=== PATIENT | female | born 1985 | race Caucasian/White ===

== ENCOUNTER 2016-09-04 19:36 | Emergency (ER) | payer SELFPAY ==
[~2016-09-04] VITALS: Ht 175.3 cm; Wt 96.5 kg
[~2016-09-04 19:36] MED LIST: ASPI325T PO; BUSP7.5T7 PO; DOXY25TA PO; OMEP-122 PO; ONDA4TAB7 PO; PROM25TA7 PO; SUCR1TAB PO
--- OUTSIDE RECORDS SUMMARY | 2016-09-04 19:41 | XMS REPORT | Continuity of Care Document ---
Author Author [facility] Organization [facility] Address Unknown Phone Unavailable Allergies Active Description Code Type Severity Reaction Onset Reported/Identified Relationship to Patient Clinical Status Yes Penicillins Drug Allergy Severe Anaphylaxis 06/10/2010 Yes No Known Food Allergies Food Allergy 08/08/2012 Yes No Known Food Allergies Food Allergy N/A N/A 03/19/2013 Yes Penicillins Penicillins Drug Allergy Severe AIRWAY SWELLING 09/19/2015 Medications Problems Date Dx Coded Attending Type Code Diagnosis Diagnosed By 08/08/2012 Bronson Rogers MD Final 305.1 TOBACCO USE DISORDER 08/08/2012 Bronson Rogers MD Final 535.50 GASTRODUODENITIS NOS 08/08/2012 Bronson Rogers MD Final 786.50 CHEST PAIN NOS 02/28/2013 Final 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 02/28/2013 Final 724.2 LUMBAGO 03/19/2013 Luiz Vizcarra MD Final 465.9 ACUTE URI NOS 03/19/2013 Luiz Vizcarra MD Final 599.0 URINARY TRACT INF NOS 03/19/2013 Luiz Vizcarra MD Final 724.2 LUMBAGO 03/19/2013 Luiz Vizcarra MD Admitting 786.2 COUGH 05/29/2016 JAMES ALBERT [id number] Nicotine dependence, cigarettes, uncomplicated 05/29/2016 JAMES ALBERT F419 Anxiety disorder, unspecified 05/29/2016 JAMES ALBERT N739 Female pelvic inflammatory disease, unspecified 05/29/2016 JAMES ALBERT [id number] Left lower quadrant pain 05/29/2016 JAMES ALBERT R110 Nausea 05/29/2016 JAMES ALBERT R200 Anesthesia of skin 05/29/2016 JAMES ALBERT [id number] Patient's other noncompliance with medication regimen Procedures Encounters ACCT No. Visit Date/Time Discharge Status Pt. Type Provider Facility Loc./Unit Complaint [id number] 03/19/2013 16:57:00 2012 18:18:00 DIS Emergency Zackery PHILLIP, Luiz Emery [facility] on [address] [id number] 08/08/2012 21:34:00 2012 00:25:00 DIS Emergency Sue PHILLIP, Bronson Alcala [facility] on [address] [id number] 02/28/2013 17:15:00 Document Registration
--- OUTSIDE RECORDS SUMMARY | 2016-09-04 19:42 | XMS REPORT | Continuity of Care Document ---
Author Author [facility] Organization [facility] Address Unknown Phone Unavailable Support Name Relationship Address Phone RAMBO CUEVA MD Caregiver [address] [place] [address] Unavailable JUAN M AL Next Of Kin [address] [place] [address] Insurance Providers Guarantor Shirley Iniguez Address [address] [place] [address] Email DENIED 16 Payer Self Pay Subscriber's Name Shirley Iniguez Relationship 18 Self Chief Complaint and Reason for Visit Chief Complaint Chest Pain Reason for Visit Gastritis Problems Past Problems Medical Problem Onset Date Anxiety Unknown Anxiety Unknown Anxiety Unknown Anxiety Unknown Anxiety Unknown Anxiety disorder Unknown Chest pain Unknown Chest pain Unknown Elevated liver enzymes Unknown Elevated liver function tests Unknown Enteritis Unknown Gastritis Unknown Panic attack Unknown Panic attack Unknown Medications Current Home Medications Medication Dose Units Route Directions Days Qty Instructions Start Date Aspirin 325 Mg Tablet 325 Mg Oral Daily 07/14/16 Buspirone Hcl 7.5 Mg Tablet 7.5 Mg Oral Twice A Day 07/11/16 Doxylamine Succinate (Sleep Aid) 25 Mg Tablet 25 Mg Oral Bedtime 07/11/16 Omeprazole 20 Mg Tablet.dr 20 Mg Oral Before Breakfast 20 Tablet Take one tablet by mouth twice daily for 7 days, then one tablet by mouth daily. Ondansetron (Zofran Odt) 4 Mg Tab.rapdis 4 Mg Oral Q8h @ 0100/0900/1700 10 Tablet Orally disintegrating tablet 07/14/16 Promethazine Hcl 25 Mg Tablet 1 Tab-Cap Oral Every 6 Hr Prn for Nausea &/ Or Vomiting 20 07/11/16 Sucralfate 1 Gm Tablet 1 Gm Oral Twice A Day 07/11/16 Past Home Medications Medication Directions Ordered Status Hydroxyzine Pamoate (Vistaril) 50 Mg Capsule, 1 Cap Oral Four Times Daily for Anxiety 06/02/16 Discontinued Social History Social History Problem Response Recorded Date/Time Onset Date Status Hx Substance Use No 07/11/2016 4:24pm Not Applicable Not Applicable Hx Alcohol Use No 07/11/2016 4:24pm Not Applicable Not Applicable Hospital Discharge Instructions No hospital discharge instructions. Plan of Care Discharge Date 07/14/16 8:50pm Disposition 01 DISCHARGED HOME, SELF-CARE Condition at Discharge Stable Instructions/Education Provided Gastritis (ED) Prescriptions See Medication Section Additional Instructions/Education Continue to drink plenty of fluids at home. May use the Zofran as needed for nausea and take the Omeprazole to help reduce acidity. If this is not improving at all then please follow up with your primary care provider for reevaluation. Care Plan and Goals Physician Care Plan Problem:Gastritis Goal: Follow up with primary care provider Instructions: Take medications and follow care plan as discussed/written Functional Status No functional status results. Allergies, Adverse Reactions, Alerts Allergen Type Severity Reaction Status Last Updated Penicillin Allergy Severe ANAPHYLAXIS Active 07/14/16 Immunizations Query Response on File Recorded Date/Time Influenza Vaccine Hx 2016 07/11/16 4:24pm Vital Signs Acute Vital Signs Vital Response Date/Time Temperature (Fahrenheit) 98.4 deg F (96.8 - 99.1) 07/14/2016 7:18pm Temperature (Calculated Celsius) 36.20125 degrees C (36.0 - 37.3) 07/14/2016 7:18pm Pulse Rate (adult) 119 bpm (60 - 100) 07/14/2016 7:18pm Respiratory Rate 20 breaths/min (10 - 20) 07/14/2016 7:18pm O2 Sat by Pulse Oximetry 98 % (90 - 100) 07/14/2016 7:18pm Blood Pressure 172/82 mm Hg 07/14/2016 7:18pm Height (Feet) 5 feet 07/14/2016 7:18pm Height (Inches) 9.00 inches 07/14/2016 7:18pm Weight (Kilograms) 95.400 kg 07/14/2016 7:18pm Body Mass Index (BMI) 31.0 07/14/2016 7:18pm Results Laboratory Results Test Name Result Units Flags Reference Collection Date/Time Result Date/ Time Comments D-Dimer < 150 NG/ML 0-230 06/02/2016 10:07am 06/02/2016 10:58am <230 NG/ML D-DU=PRESUMPTIVE NEGATIVE FOR PE OR DVT >230 NG/ML D-DU=ADDITIONAL EVAL FOR PE OR DVT RECOMMENDED Troponin I < 0.012 ng/ml 0-0.12 06/02/2016 10:07am 06/02/2016 10:44am Troponin values with a difference of 55% increase from orginal troponin value represent a true biological DELTA value. (%increase Calc=Orginal Troponin value, divided by subsequent Troponin value, multiplied by 100) Thyroid Stimulating Hormone (TSH) 1.54 MIU/L 0.47-4.68 06/02/2016 10: 07am 06/02/2016 11:01am Urine Collection Type CLEANCATCH-MIDSTREAM 07/11/2016 2:53pm 2016 3:05pm Urine Color YELLOW YELLOW 07/11/2016 2:53pm 07/11/2016 3:05pm Urine Turbidity CLEAR CLEAR 07/11/2016 2:53pm 07/11/2016 3:05pm Urine Specific [place] <=1.005 L 1.015-1.025 07/11/2016 2:53pm 2016 3:05pm Urine pH 5.5 5.0-8.0 07/11/2016 2:53pm 07/11/2016 3:05pm Urine Leukocyte Esterase NEGATIVE NEGATIVE 07/11/2016 2:53pm 2016 3:05pm Urine Nitrite NEGATIVE NEGATIVE 07/11/2016 2:53pm 07/11/2016 3:05pm Urine Protein NEGATIVE NEGATIVE 07/11/2016 2:53pm 07/11/2016 3:05pm Urine Glucose (UA) NEGATIVE NEGATIVE 07/11/2016 2:53pm 07/11/2016 3: 05pm Urine Ketones NEGATIVE NEGATIVE 07/11/2016 2:53pm 07/11/2016 3:05pm Urine Urobilinogen 0.2 EU/DL NORMAL 07/11/2016 2:53pm 07/11/2016 3: 05pm Urine Bilirubin NEGATIVE NEGATIVE 07/11/2016 2:53pm 07/11/2016 3: 05pm Urine Blood NEGATIVE NEGATIVE 07/11/2016 2:53pm 07/11/2016 3:05pm Urinalysis Comment MICROSCOPIC NOT IND. 07/11/2016 2:53pm 2016 3:05pm White Blood Count 6.1 T/MM3 4.5-11.0 07/14/2016 7:50pm 07/14/2016 8: 00pm Red Blood Count 3.65 M/MM3 L 4.00-5.20 07/14/2016 7:50pm 07/14/2016 8: 00pm Hemoglobin 11.7 GM/DL L 12-16 07/14/2016 7:50pm 07/14/2016 8:00pm Hematocrit 35.3 % L 36-46 07/14/2016 7:50pm 07/14/2016 8:00pm Mean Corpuscular Volume 96.7 UM3 80-100 07/14/2016 7:50pm 07/14/2016 8: 00pm Mean Corpuscular Hemoglobin 32.1 UUG 26-34 07/14/2016 7:50pm 2016 8:00pm Mean Corpuscular Hemoglobin Concent 33.1 GM/DL 31-37 07/14/2016 7:50pm 07/14/2016 8:00pm RDW Standard Deviation 40.9 FL 36.9-50.2 07/14/2016 7:50pm 07/14/2016 8 :00pm Platelet Count 262 T/MM3 130-400 07/14/2016 7:50pm 07/14/2016 8:00pm Mean Platelet Volume 10.1 UM3 9.4-12.4 07/14/2016 7:50pm 07/14/2016 8: 00pm Neutrophils (%) (Auto) 49.1 % 33-66 07/14/2016 7:50pm 07/14/2016 8: 00pm Lymphocytes (%) (Auto) 39.4 % 23-45 07/14/2016 7:50pm 07/14/2016 8: 00pm Monocytes (%) (Auto) 7.4 % 0-9.0 07/14/2016 7:50pm 07/14/2016 8:00pm Eosinophils (%) (Auto) 3.1 % 0-4 07/14/2016 7:50pm 07/14/2016 8:00pm Basophils (%) (Auto) 0.7 % 0-2 07/14/2016 7:50pm 07/14/2016 8:00pm Immature Granulocyte % (Auto) 0.3 % 0.0-0.5 07/14/2016 7:50pm 2016 8:00pm Absolute Neutrophils (auto) 3.0 T/MM3 1.8-7.7 07/14/2016 7:50pm 2016 8:00pm Absolute Lymphocytes (auto) 2.4 T/MM3 1-4.8 07/14/2016 7:50pm 2016 8:00pm Absolute Monocytes (auto) 0.5 T/MM3 0-0.8 07/14/2016 7:50pm 07/14/2016 8:00pm Absolute Eosinophils (auto) 0.2 T/MM3 0-0.5 07/14/2016 7:50pm 2016 8:00pm Absolute Basophils (auto) 0.0 T/MM3 0-0.2 07/14/2016 7:50pm 07/14/2016 8:00pm Absolute Immature Granulocyte (auto 0.02 T/MM3 0.00-0.03 07/14/2016 7: 50pm 07/14/2016 8:00pm Icterus Index < 2 0-7 07/14/2016 7:50pm 07/14/2016 8:05pm Chemistry Specimen Hemolysis 16 0-25 07/14/2016 7:50pm 07/14/2016 8: 05pm 0-25: Specimen Exhibited No Hemolysis. Turbidity < 20 0-20 07/14/2016 7:50pm 07/14/2016 8:05pm Sodium Level 139 MEQ/L 134-144 07/14/2016 7:50pm 07/14/2016 8:05pm Potassium Level 4.3 MEQ/L 3.6-5 07/14/2016 7:50pm 07/14/2016 8:05pm Chloride Level 111 MEQ/L H 98-107 07/14/2016 7:50pm 07/14/2016 8:05pm Carbon Dioxide Level 21 MEQ/L L 22-30 07/14/2016 7:50pm 07/14/2016 8: 05pm Anion Gap 7 MEQ/L 5-15 07/14/2016 7:50pm 07/14/2016 8:05pm Blood Urea Nitrogen 13.0 MG/DL 707/14/2016 7:50pm 07/14/2016 8: 05pm Creatinine 0.9 MG/DL 0.7-1.2 07/14/2016 7:50pm 07/14/2016 8:05pm BUN/Creatinine Ratio 14 RATIO 6-26 07/14/2016 7:50pm 07/14/2016 8:05pm Glomerular Filtration Rate Calc 73 07/14/2016 7:50pm 07/14/2016 8: 05pm Glucose Level 93 MG/DL 65-110 07/14/2016 7:50pm 07/14/2016 8:05pm Calculated Osmolality 268 MOSM/KG 261-280 07/14/2016 7:50pm 07/14/2016 8:05pm Calcium Level 8.7 MG/DL 8.4-10.2 07/14/2016 7:50pm 07/14/2016 8:05pm Total Bilirubin 0.30 MG/DL 0.20-1.30 07/14/2016 7:50pm 07/14/2016 8: 05pm Alkaline Phosphatase 91 U/L 38-126 07/14/2016 7:50pm 07/14/2016 8:05pm Total Protein 6.8 G/DL 6.3-8.2 07/14/2016 7:50pm 07/14/2016 8:05pm Albumin 3.7 G/DL 3.5-5.0 07/14/2016 7:50pm 07/14/2016 8:05pm Globulin 3.1 G/DL 2.4-3.6 07/14/2016 7:50pm 07/14/2016 8:05pm Albumin/Globulin Ratio 1.2 RATIO 1.1-2.2 07/14/2016 7:50pm 07/14/2016 8 :05pm Aspartate Amino Transf (AST/SGOT) 31 U/L 14-36 07/14/2016 7:50pm 2016 8:05pm Alanine Aminotransferase (ALT/SGPT) 107 U/L H 9-52 07/14/2016 7:50pm 8:05pm Lipase 97 U/L 23-300 07/14/2016 7:50pm 07/14/2016 8:15pm Procedures Procedure Status Date Provider(s) Hydrate iv infusion add-on Completed 07/11/16 Ther/proph/diag inj iv push Completed 07/11/16 Tx/pro/dx inj new drug addon Completed 07/11/16 Tx/pro/dx inj new drug addon Completed 07/11/16 Encounters Encounter Location Arrival/Admit Date Discharge/Depart Date Attending Provider Departed Emergency Room [facility] 07/14/16 7:16pm 07/14/16 8: 50pm RAMBO CUEVA MD Departed Emergency Room [facility] 07/11/16 1:26pm 07/11/16 6: 15pm SHEY ZIEGLER DO Departed Emergency Room [facility] 06/04/16 9:14pm 06/04/16 11: 39pm PABLO DEGROOT DO Departed Emergency Room [facility] 06/02/16 9:27am 06/02/16 12: 40pm BROOKLYNN ZEPEDA DO Recent Diagnosis
--- OUTSIDE RECORDS SUMMARY | 2016-09-04 19:42 | XMS REPORT ---
Author Author [facility], SYSTEM Organization Unknown Address Unknown Phone Unavailable Care Team Providers Care Development Consultant Name Role Phone UNASSIGNED DOCTOR , DOCTOR PP [phone] Reason For Visit Chief Complaint PELVIC INFLAMMATORY DISEASE Social History Functional Status Vital Signs Results Chemistry from 05/28/2016 8:05 PMSODIUM 139 MMOL/L (136-145 MMOL/L) POTASSIUM 3.5 MMOL/L (3.5-5.1 MMOL/L) CHLORIDE 104 MMOL/L (98-107 MMOL/L) TCO2 25.8 MMOL/L (21.0-32.0 MMOL/L) *ANION GAP 9.2 MMOL/L (8.0-16.0 MMOL/L) BUN 5 MG/DL L (7-18 MG/DL) CREATININE 0.75 MG/DL (0.55-1.02 MG/DL) *BUN/CREATININE RATIO 6.7 L (9.1-17.0 ) GLUCOSE 104 MG/DL H (65-99 MG/DL) *GFR EST NON AFR DOMINICAN >90 ML/MIN *GFR EST AFR AMER >90 ML/MIN CALCIUM 9.5 MG/DL (8.5-10.1 MG/DL) BILIRUBIN TOTAL 0.20 MG/DL (0.20-1.00 MG/DL) TOTAL PROTEIN 7.0 GM/DL (6.4-8.2 GM/DL) ALBUMIN 3.7 GM/DL (3.4-5.0 GM/DL) *GLOBULIN 3.3 GM/DL (2.3-3.5 GM/DL) *A/G RATIO 1.1 MG/DL L (1.5-2.2 MG/DL) ALK PHOS 99 U/L (46-116 U/L) ALT (SGPT) 45 U/L (16-63 U/L) AST (SGOT) 52 U/L H (15-37 U/L) Hematology from 05/28/2016 8:05 PMWBC 8.7 X10e3/UL (3.6-11.2 X10e3/UL) RBC 3.74 X10e6/UL (3.63-4.92 X10e6/UL) HEMOGLOBIN 11.8 G/DL (11.0-14.3 G/DL) HEMATOCRIT 35.5 % (31.2-41.9 %) *MCV 94.8 FL (79.0-98.0 FL) *MCH 31.5 PG (27.0-33.0 PG) *MCHC 33.3 G/DL (32.0-36.0 G/DL) *RDW 12.4 % (12.3-17.0 %) *RDWSD 41.6 (37.1-47.8 ) PLATELET 224 X10e3/UL (159-386 X10e3/UL) *MPV 8.4 FL (7.4-10.4 FL) AUTOMATED DIFF PERFORMED SEGS 60.8 % *LYMPHOCYTES 31.2 % *MONOCYTES 5.9 % *EOSINOPHILS 1.6 % *BASOPHILS 0.5 % *ABSOLUTE NEUTROPHILS 5.30 X10e3/UL (1.80-7.80 X10e3/UL) *ABSOLUTE LYMPHOCYTES 2.70 X10e3/UL (1.00-3.00 X10e3/UL) *ABSOLUTE MONOCYTES 0.50 X10e3/UL (0.30-1.00 X10e3/UL) *ABSOLUTE EOSINOPHILS 0.10 X10e3/UL (0.00-0.50 X10e3/UL) *ABSOLUTE BASOPHILS 0.00 X10e3/UL (0.00-0.20 X10e3/UL) Urinalysis from 05/28/2016 9:05 PM*URINE COLOR YELLOW (STRAW/YELL/DK YELL ) *URINE APPEARANCE CLEAR (CLEAR ) URINE PH 5.5 (5.0-8.0 ) URINE SPECIFIC GRAVITY <1.005 (<=1.005->=1.030 ) *URINE GLUCOSE NEGATIVE MG/DL (NEGATIVE MG/DL) *URINE BILIRUBIN NEGATIVE (NEGATIVE ) *URINE KETONES NEGATIVE MG/DL (NEGATIVE MG/DL) *URINE BLOOD NEGATIVE (NEGATIVE ) *URINE PROTEIN NEGATIVE MG/DL (NEGATIVE MG/DL) *URINE UROBILINOGEN 0.2 EU/DL (0.2-1.0 EU/DL) *URINE NITRITES NEGATIVE (NEGATIVE ) *URINE LEUKOCYTES NEGATIVE (NEGATIVE ) UR NEGATIVE (NEGATIVE ) Microbiology from 05/28/2016 8:40 PM* *[facility]- FUNGAL SMEAR Specimen Number: [id number] Sample Collection Date/Time: 05/28/2016 8:40 PM Specimen Source: Cervix *WET PREP: No Trichomonas seen *DEEDEE- FUNGAL SMEAR: No yeast or fungal elements seen CULTURE GC PROFILE: No Neisseria gonorrhoeae isolated * *WET PREP Specimen Number: [id number] Sample Collection Date/Time: 05/28/2016 8:40 PM Specimen Source: Cervix *WET PREP: No Trichomonas seen *DEEDEE- FUNGAL SMEAR: No yeast or fungal elements seen CULTURE GC PROFILE: No Neisseria gonorrhoeae isolated * CULTURE GC PROFILE (Preliminary Result) Specimen Number: [id number] Sample Collection Date/Time: 05/28/2016 8:40 PM Specimen Source: Cervix *WET PREP: No Trichomonas seen CULTURE GC PROFILE: No Neisseria gonorrhoeae isolated *DEEDEE- FUNGAL SMEAR: No yeast or fungal elements seen CT Scan from 05/28/2016 8:18 PMCT ABD/PELVIS W/O CONTRAST History: abdominal pain, llq . 31 y/o female presented to the ED via EMS for constant back pain and abd pain starting a couple hours ago. Pt also states anxiety, shaking, numbness in feet, chest pain, and nausea, but denies fever, cough, diarrhea, dysuria, vaginal bleeding, and vaginal discharge. She has a Hx of anxiety as well as a PSHx of cholecystectomy and tubal ligation. Pt has not been taking her medication. Her LNMP was last week. No hx of simiar back and abd pain. Priors: None. Findings: Abdomen Lung bases: Clear Liver: Normal density. No definable mass. Spleen: Normal. Pancreas: No discrete mass or inflammatory process. Gallbladder and biliary tract: The gallbladder is surgically absent. Adrenal glands: Normal. Kidneys: There are questionable punctate bilateral renal calculi. There is no evidence of ureteral calculus or hydronephrosis. No Hydronephrosis. Urinary Bladder: Normal. Aorta: Normal in caliber. No periaortic lymphadenopathy. Bowel and Mesentery: There is moderate retained fecal material noted within the colon. No findings of appendicitis. Ascites: None. Pelvis Lymphadenopathy: None. Reproductive: Unremarkable. Osseous Structures: There is a transitional vertebrae noted at the lumbosacral junction. Impression: Constipation. Questionable punctate nonobstructing bilateral renal calculi. Electronically signed by: Debby Sanabria MD Dictated: 05/29/2016 09:02 Problems Encounter Diagnosis No relevant problems exist. Encounters Encounter Diagnosis No relevant problems exist. Plan of Care Procedures No relevant procedures performed. Immunizations No immunizations administered or ordered. Hospital Course Hospital Discharge Instructions Allergies, Adverse Reactions, Alerts * Latex Allergy has not been assessed. * IV Contrast Allergy has not been assessed. Medication Medication reconciliation has not been performed.
[2016-09-04 20:11] VITALS: TEMP 98.2; Ht 175.3 cm; Wt 96.5 kg
[2016-09-04] MEDS ORDERED: ONDANSETRON ODT 4 MG TAB PO ONE (20:30)
[2016-09-04] MEDS ORDERED: LORAZEPAM 0.5 MG TABLET PO ONE (20:30)
--- NOTE | 2016-09-04 20:34 | ERPDOC ---
Departure Disposition Decision Date: Sep 04, 2016 Disposition Decision Time: 21:22 Disposition: 01 DISCHARGED HOME, SELF-CARE Impression Impression Impression: Primary Impression: Nausea & vomiting Vomiting type: unspecified Vomiting Intractability: non-intractable Qualified Codes: R11.2 - Nausea with vomiting, unspecified Severity: Moderate Condition: Stable Seen By: Mid-level only Patient Instructions: Acute Nausea and Vomiting (ED) Problems/Meds/Labs Reviewed?: Yes Medications reviewed and manag: Yes Additional Instructions: Your labs today are normal aside from very mildly elevated liver enzymes. I want you to use the Zofran as needed for nausea. If you are not improving in the next 1-2 days then please follow up with your primary care provider for reevaluation. Follow up care ordered?: Yes Mental Status: Alert, Oriented Scripts Ondansetron (Zofran Odt) 4 Mg Tab.rapdis 4 MG PO Q8HR, #7 TAB 0 Refills Orally disintegrating tablet Prov: SHONDA MEAD CASH MANAGER 09/04/16 HPI - General Medical General Chief Complaint: General Stated Complaint: DOES NOT FEEL WELL,VOMITING,ANXIETY Time Seen by Provider: 20:30 Source: patient Exam Limitations: no limitations HPI - General Medical Initial Comments She has not felt well today. Has been having some increased nausea today. Has not taken anything for this at home. Denies any diarrhea or fever/chills. Has had a headache and feels like her anxiety is worse. She has not really been taking anything recently for her anxiety and so would like something here today. Occurred At: home Onset: Gradual Duration: 6-12 hrs Severity: moderate Associated Symptoms: headaches, loss of appetite, malaise, nausea/vomiting, DENIES: chest pain, cough, diaphoresis, fever/chills, rash, seizure, shortness of breath, syncope, weakness Hx of Similar Symptoms: No Allergies: Coded Allergies: Penicillins (Verified Allergy, Severe, ANAPHYLAXIS, 09/04/16) Past History Past Medical History Hx Echocardiogram: No GI: gallbladder disease Neurological: migraines, seizures Psychological: anxiety Surgical History General: gallbladder Reproductive/: tubal ligation Family History Family PMH: FOUND: other Social History Smoking Status: Never smoker Does patient use chewing tobac: No Second Hand Exposure: No Substance Use Type: does not use Alcohol Intake: none Marital Status: Sexuality: male partner Housing: house Household Members: family Service: No Current Occupational Status: unemployed Occupational Hazard: No Advance Directives: Yes Full Code Review of Systems Constitutional Constitutional: appetite decrease, fatigue, weakness, DENIES: chills, dizziness , fever Cardiovascular Cardiac: DENIES: chest pain, orthopnea Rhythm/Rate: DENIES: irregular beat, palpitations Vascular: DENIES: pedal edema, unilateral swelling Pulmonary Respiratory: DENIES: cough, dyspnea, sputum, tachypnea GI Upper Abdomen: nausea, vomiting, DENIES: pain Lower Abdomen: DENIES: constipation, diarrhea, pain Integumentary Skin: DENIES: rash Neurological General: DENIES: headache, numbness, tingling, weakness Physical Exam General General Nourishment: well nourished, well developed, appears stated age, no acute distress, adult General Body Habitus: well groomed Vitals and Pain First Documented Vital Signs Date Time Temp Pulse Resp B/P Pulse Ox O2 Delivery O2 Flow Rate FiO2 09/04/16 20:11 98.2 86 19 127/71 100 Room Air Weight: Kilograms: 96.500 Height (feet): 5 Height (inches): 9.00 Triage Pain Scale: RN VS reviewed by Provider: Yes Normal Exams: Neck: Full range of motion, without adenopathy, JVD, bruits or thyromegaly Chest/Resp: Clear all had[place], with good airflow, and symmetry bilaterally CV: Regular rate and rhythm, without murmur or gallop, Pulses 2+ all extremities, capillary refill, <2 seconds all ext., no pedal edema noted Abdomen: Bowel sounds positive, soft, non-tender, non-distended, no hepatosplenomegaly, masses or bruits noted Lymphatic: No lymphadenopathy, or lymphedema noted Integumentary: No rashes, hives, or bruising noted Neurologic: Patient is alert, and oriented Psychiatric: Patient exhibits, appropriate attention, emotion and affect Differential Diagnoses Considering: Hypo/Hyperglycemia, Hypo/Hyperkalemia, Hypo/Hypernatremia, Other ( gastroenteritis) Progress Results/Orders Orders Procedure Category Date Status Time Cbc W/Auto LAB 09/04/16 Complete Diff-Reflex Manual Cmp - Comprehensive LAB 09/04/16 Complete Metabolic Ondansetron Odt PHA 09/04/16 Complete (Zofran Odt) 20:30 Lorazepam (Ativan) PHA 09/04/16 Complete 20:30 Ondansetron Odt PHA 09/04/16 In Process (Prepack) (Zofran Odt 21:30 Lab Results Laboratory Tests Test 09/04/16 20:40 White Blood Count 6.9T/MM3 Red Blood Count 3.76M/MM3 Hemoglobin 11.9GM/DL Hematocrit 35.5% Mean Corpuscular Volume 94.4UM3 Mean Corpuscular Hemoglobin 31.6UUG Mean Corpuscular Hemoglobin Concent 33.5GM/DL RDW Standard Deviation 40.7FL Platelet Count 294T/MM3 Mean Platelet Volume 9.8UM3 Immature Granulocyte % (Auto) 0.4% Neutrophils (%) (Auto) 47.5% Lymphocytes (%) (Auto) 40.9% Monocytes (%) (Auto) 8.0% Eosinophils (%) (Auto) 2.9% Basophils (%) (Auto) 0.3% Absolute Immature Granulocyte (auto 0.03T/MM3 Absolute Neutrophils (auto) 3.3T/MM3 Absolute Lymphocytes (auto) 2.8T/MM3 Absolute Monocytes (auto) 0.6T/MM3 Absolute Eosinophils (auto) 0.2T/MM3 Absolute Basophils (auto) 0.0T/MM3 Turbidity < 20 Sodium Level 138MEQ/L Potassium Level 4.2MEQ/L Chloride Level 106MEQ/L Carbon Dioxide Level 22MEQ/L Anion Gap 10MEQ/L Blood Urea Nitrogen 9.0MG/DL Creatinine 0.7MG/DL Glomerular Filtration Rate Calc 98 BUN/Creatinine Ratio 13RATIO Glucose Level 97MG/DL Calculated Osmolality 265MOSM/KG Calcium Level 9.1MG/DL Total Bilirubin 0.30MG/DL Icterus Index < 2 Aspartate Amino Transf (AST/SGOT) 48U/L Alanine Aminotransferase (ALT/SGPT) 83U/L Alkaline Phosphatase 117U/L Total Protein 6.7G/DL Albumin 3.7G/DL Globulin 3.0G/DL Albumin/Globulin Ratio 1.2RATIO Chemistry Specimen Hemolysis < 15 Medications Current ED Medications Ondansetron HCl (Zofran Odt) 4 mg O ONCE PO Last administered on 09/04/16t 20: 38; Start 09/04/16 at 20:30; Stop 09/04/16 at 20:31; Status DC Lorazepam (Ativan) 0.5 mg O ONCE PO Last administered on 09/04/16t 20:40; Start 09/04/16 at 20:30; Stop 09/04/16 at 20:31; Status DC Ondansetron HCl (ZOFRAN ODT (PrePack)) 1 pack O ONCE SENT HOME ; Start at 21:30; Stop 09/04/16 at 21:31 Progress Progress WBC is normal. CMP is normal aside from AST-48 and ALT-83. She has had elevated liver enzymes off and on in the past. Will go ahead and let her go home with Rx for Zofran. F/U with PCP if not improving at all. SHONDA MEAD APRN Sep 04, 2016 20:34
--- OUTSIDE RECORDS SUMMARY | 2016-09-04 20:44 | XMS REPORT ---
Author Author GENERATED, SYSTEM Organization Unknown Address Unknown Phone Unavailable Care Team Providers Care Shop Assistant Name Role Phone UNASSIGNED DOCTOR , DOCTOR PP [phone] Reason For Visit Chief Complaint PELVIC INFLAMMATORY [...] H (65-99 MG/DL) *GFR EST NON AFR TURKISH >90 ML/MIN *GFR EST AFR AMER >90 [...] 8:40 PM* *DEEDEE- FUNGAL SMEAR Specimen Number: [id number] Sample Collection Date/Time: 05/28/2016 8:40 PM Specimen Source: Cervix *WET PREP: No Trichomonas seen *DEEDEE- FUNGAL SMEAR: No yeast or fungal elements seen CULTURE GC PROFILE: No Neisseria gonorrhoeae isolated * *WET PREP Specimen Number: [id number] Sample Collection Date/Time: 05/28/2016 8:40 PM Specimen Source: Cervix *WET PREP: No Trichomonas seen *DEEDEE- FUNGAL SMEAR: No yeast or fungal elements seen CULTURE GC PROFILE: No Neisseria gonorrhoeae isolated * CULTURE GC PROFILE (Preliminary Result) Specimen Number: [id number] Sample Collection Date/Time: 05/28/2016 8:40 PM Specimen [...]
--- OUTSIDE RECORDS SUMMARY | 2016-09-04 20:44 | XMS REPORT | Continuity of Care Document ---
Author Author [facility] Organization [facility] Address Unknown Phone Unavailable Allergies Active [...] MD Admitting 786.2 COUGH 05/29/2016 JAMES ALBERT [id number] Nicotine dependence, cigarettes, uncomplicated 05/29/2016 JAMES ALBERT [...] Status Pt. Type Provider Facility Loc./Unit Complaint [id number] 03/19/2013 16:57:00 2012 18:18:00 DIS Emergency Zackery PHILLIP, Luiz Emery [facility] on [address] [id number] 08/08/2012 21:34:00 2012 00:25:00 DIS Emergency Sue PHILLIP, Bronson Alcala [facility] on [address] [id number] 02/28/2013 17:15:00 Document Registration
[2016-09-04] MEDS ORDERED: NO ROUTINE MEDS (20:59)
[2016-09-04] MEDS ORDERED: ASPI1TAB72 PO (21:00)
[2016-09-04] MEDS ORDERED: [UNRECOGNIZED DRUG - OTHER] PO (21:01)
[2016-09-04 21:06] LABS: BASOPHILS % (AUTO) 0.3 % (0-2); EOSINOPHILS # (AUTO) 0.2 T/MM3 (0-0.5); EOSINOPHILS % (AUTO) 2.9 % (0-4); HCT - HEMATOCRIT 35.5 % (36-46); HGB - HEMOGLOBIN 11.9 GM/DL (12-16); IMMATURE GRANULOCYTE # (AUTO) 0.03 T/MM3 (0.00-0.03); IMMATURE GRANULOCYTE % (AUTO) 0.4 % (0.0-0.5); LYMPHOCYTES # (AUTO) 2.8 T/MM3 (1-4.8); LYMPHOCYTES % (AUTO) 40.9 % (23-45); MEAN CORPUSCULAR HGB 31.6 UUG (26-34); MEAN CORPUSCULAR HGB CONC(MCHC 33.5 GM/DL (31-37); MEAN CORPUSCULAR VOLUME 94.4 UM3 (80-100); MEAN PLATELET VOLUME 9.8 UM3 (9.4-12.4); MONOCYTES # (AUTO) 0.6 T/MM3 (0-0.8); NEUTROPHILS #(AUTO)-ABSOLUTE 3.3 T/MM3 (1.8-7.7); NEUTROPHILS % (AUTO) 47.5 % (33-66); RED BLOOD COUNT 3.76 M/MM3 (4.00-5.20); WBC - WHITE BLOOD COUNT 6.9 T/MM3 (4.5-11.0)
[2016-09-04 21:16] LABS: ALBUMIN 3.7 G/DL (3.5-5.0); ALBUMIN/GLOBULIN RATIO 1.2 RATIO (1.1-2.2); ALKALINE PHOSPHATASE 117 U/L (38-126); ALT (SGPT) 83 U/L (9-52); ANION GAP 10 MEQ/L (5-15); AST (SGOT) 48 U/L (14-36); BUN/CREATININE RATIO 13 RATIO (6-26); CALCIUM 9.1 MG/DL (8.4-10.2); CHLORIDE 106 MEQ/L (98-107); CO2 - CARBON DIOXIDE 22 MEQ/L (22-30); CREATININE 0.7 MG/DL (0.7-1.2); GLOMERULAR FILTRATION RATE 98; GLUCOSE 97 MG/DL (65-110); POTASSIUM 4.2 MEQ/L (3.6-5); SODIUM 138 MEQ/L (134-144); TOTAL PROTEIN 6.7 G/DL (6.3-8.2)
[2016-09-04] MEDS ORDERED: ONDA4TAB7 PO (21:23)
[2016-09-04 21:30] VITALS: BP 100/77; PULSE 85; RESP 19; O2SAT 97
[2016-09-04] MEDS ORDERED: ONDANSETRON ODT 4mg #3 (PrePack) SENT HOME ONE (21:30)
== END 2016-09-04 21:30 | disposition home or self-care (01) ==
LOC: ED 19:36
DX: R11.2 Nausea with vomiting, unspecified (principal); R51 Headache; R53.81 Other malaise; R53.1 Weakness; R53.83 Other fatigue
CPT/HCPCS: 36415; 80053; 85025